=== PATIENT | male | born 1965 | race Caucasian/White ===

== ENCOUNTER 2021-10-30 13:38 | Inpatient (IN) | payer SELFPAY ==
[2021-10-30 14:04] VITALS: BP 134/92; PULSE 90; RESP 18; TEMP 36.4; O2SAT 98
[2021-10-30 14:08] VITALS: BMI 21.1
--- NOTE | 2021-10-30 14:11 | PC.NURSE ---
ADMISSION 56 y/o male, direct admit from [facility]. Admitted for increased SI with plan to slit his throat, some HI as well that worsened last night. States no one thing that has increased this but a ?snowball? of things. Currently living and caring for both elderly parents and states that this is a big stressor. Has not been on medications for 1 year. States has off and on issues with ETOH, longest time sober 1 year. +BZO, THC, ETOH 186. States that a friend gave him Xanax last week for the anxiety but it had the opposite effect and did not help. Calm, cooperative, quiet. A&OX4. Denies AVH.
[2021-10-30 21:15] VITALS: BP 160/97; PULSE 90; RESP 18; TEMP 36.4; O2SAT 97
[2021-10-30] MEDS: trazodone 50 mg Tablet PO (22:17)
[2021-10-30] MEDS: hyDROXYzine 25 mg Capsule 50 MG PO (22:17)
[2021-10-31 05:36] VITALS: BP 118/73; PULSE 93; RESP 17; TEMP 36.6; O2SAT 95
--- NOTE | 2021-10-31 06:19 | PC.NURSE ---
Trazodone 50 mg PO given for sleep and Vistaril 50 mg for anxiety with good results.
[2021-10-31] MEDS: multivitamin therapeutic Tablet 1 TAB PO (09:03)
[2021-10-31] MEDS: hyDROXYzine 25 mg Capsule 50 MG PO ×2 (09:03→21:37)
[2021-10-31] MEDS: folic acid 1 mg Tablet PO (09:03)
[2021-10-31] MEDS: thiamine 100 mg Tablet PO (09:03)
[2021-10-31] MEDS: OLANZapine 5 mg ODT PO (09:03)
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
--- NOTE | 2021-10-31 13:10 | PC.NURSE ---
PRN Meds Patient initially displaying withdraw signs this morning of sweating and anxiety. Received PRN Ativan per protocol to good effect. No further s/sx at this time.
[2021-10-31 13:53] VITALS: BP 134/91; PULSE 96; RESP 16; TEMP 36.6; O2SAT 97
[2021-10-31] MEDS: escitalopram 10 mg Tablet PO (18:54)
[2021-10-31 21:07] VITALS: BP 148/99; PULSE 94; RESP 16; TEMP 36.6; O2SAT 95
[2021-10-31] MEDS: trazodone 50 mg Tablet PO (21:37)
[2021-10-31] MEDS: LORazepam 2 mg Tablet PO (21:54)
[2021-11-01 06:00] VITALS: BP 132/89; PULSE 84; RESP 16; TEMP 36.8; O2SAT 96
[2021-11-01] MEDS: multivitamin therapeutic Tablet 1 TAB PO (09:59)
[2021-11-01] MEDS: thiamine 100 mg Tablet PO (09:59)
[2021-11-01] MEDS: folic acid 1 mg Tablet PO (09:59)
[2021-11-01] MEDS: escitalopram 10 mg Tablet PO (09:59)
[2021-11-01] MEDS: LORazepam 2 mg Tablet PO (13:20)
[2021-11-01 14:00] VITALS: BP 140/96; PULSE 81; RESP 18; TEMP 37.1; O2SAT 95
--- NOTE | 2021-11-01 18:16 | P.NPUPN_ITS ---
Subjective NPU Subjective: Interval history: Patient presents today reporting that he is feeling a little better each day. He reports that this was a much-needed break to get his mental health in order. He denied any significant withdrawal symptoms at this time. He reports he feels confident that with the medication he can start addressing issues and taking care of himself so he can continue to take care of his parents. We discussed the likely discharge by Wednesday. Mental Status Exam MSE Comments: This is a slender, white male, in hospital scrubs, with adequate grooming and eye contact. No abnormal movements, except for resolving mild psychomotor retardation. Cooperative with exam in no acute distress. Speech was normal rate and volume. Mood described as getting better; affect congruent. Thought process, organized. Thought content: patient denied any suicidal or homicidal ideation, there were no delusions reported or noted, patient denied any auditory or visual hallucinations. Attention, concentration, and memory appear intact but none were formally tested. He is alert and oriented times three. Insight and judgment are fair. Impulse control is is limited. Vitals/I&O/Wt Last Vital Signs Temp 97.9 F 11/01/21 21:24 Pulse 80 11/01/21 21:24 Resp 16 11/01/21 21:24 BP 143/83 11/01/21 21:24 Pulse Ox 99 11/01/21 21:24 A&P Assessment and plan (1) Anxiety: Status: Acute (2) Methamphetamine abuse in remission: Status: Acute (3) Cannabis abuse: Status: Acute (4) Alcohol use disorder: Status: Acute (5) Major depressive disorder, recurrent: Status: Acute Plan This is a 56-year-old, white male, with a long history of depression, anxiety, post-traumatic stress disorder, and alcohol and cannabis use, with a distant history of methamphetamine addiction, who presents with active alcohol and cannabis addiction, and significant psychosocial stressors with his parents, open to a trial of medication. 1. Continue current medication. Lexapro 10 mg po qam was initiated. 2. Encourage individual, group, and milieu therapy. 3. Continue q-15 minute checks for safety. 4. Recommend sober living treatment at the highest level of care to which the patient is willing to commit. 5. Monitor with [facility] protocol. Involuntary Hold Information 96 Hour Hold: 96 Hour Involuntary Admission: No Attestations NPU Medical Necessity Statement*: Inpatient hospitalization is medically necessary and the clinically appropriate intervention, at this time. We will monitor medications and make changes as indicated. Likely length of stay is 2-4 days. Coding Level of Care Code Acute Composition Tile Layer for Averyg Fwd Diagnoses Anxiety F41.9 Methamphetamine abuse in remission F15.11 Cannabis abuse F12.10 Alcohol use disorder Major depressive disorder, recurrent F33.9
[2021-11-01] MEDS: hyDROXYzine 25 mg Capsule 50 MG PO (20:29)
[2021-11-01] MEDS: trazodone 50 mg Tablet PO (20:48)
[2021-11-01 21:24] VITALS: BP 143/83; PULSE 80; RESP 16; TEMP 36.6; O2SAT 99
--- NOTE | 2021-11-01 22:32 | PC.NURSE ---
Patient requested Trazadone 50 mg po for sleep. When going to take this the patient had moderate tremors in bilateral hands. Vistaril 50 mg po given. Patient is now asleep.
[2021-11-02 05:59] VITALS: BP 137/73; PULSE 80; RESP 16; O2SAT 98
[2021-11-02 06:00] VITALS: BMI 21.1
[2021-11-02] MEDS: folic acid 1 mg Tablet PO (08:57)
[2021-11-02] MEDS: multivitamin therapeutic Tablet 1 TAB PO (08:57)
[2021-11-02] MEDS: escitalopram 10 mg Tablet PO (08:57)
[2021-11-02] MEDS: thiamine 100 mg Tablet PO (08:57)
[2021-11-02] MEDS: LORazepam 2 mg Tablet PO (10:16)
[2021-11-02 14:00] VITALS: BP 125/71; PULSE 88; RESP 16; TEMP 36.6; O2SAT 94
--- NOTE | 2021-11-02 14:59 | W.PM.NPUPNS ---
Subjective NPU Subjective: Interval history: Patient presents today reporting that he is feeling better and very glad he came to the hospital. He feels optimistic that he will be able to manage his recovery once discharged and really feels the Lexapro has been a significant addition reporting that he feels less anxious and less depressed. He reports that he knows that his parents cannot take care of himself and so he will be returning to that environment but we did discuss the importance of him managing self-care and sharpening the saw. He reports his heart sometimes with their needs to find time for himself but he will work on that. We discussed discharge tomorrow with appropriate referrals. Mental Status Exam MSE Comments: This is a slender, white male, in hospital scrubs, with adequate grooming and eye contact. No abnormal movements, except for resolving mild psychomotor retardation. Cooperative with exam in no acute distress. Speech was normal rate and volume. Mood described as better; affect congruent. Thought process, organized. Thought content: patient denied any suicidal or homicidal ideation, there were no delusions reported or noted, patient denied any auditory or visual hallucinations. Attention, concentration, and memory appear intact but none were formally tested. He is alert and oriented times three. Insight and judgment are fair. Impulse control is is improving. Vitals/I&O/Wt Last Vital Signs Temp 97.9 F 11/02/21 14:00 Pulse 88 11/02/21 14:00 Resp 16 11/02/21 14:00 BP 125/71 11/02/21 14:00 Pulse Ox 94 11/02/21 14:00 Weight last 48 hrs Weight 72.575 kg A&P Assessment and plan (1) Anxiety: Status: Acute (2) Methamphetamine abuse in remission: Status: Acute (3) Cannabis abuse: Status: Acute (4) Alcohol use disorder: Status: Acute (5) Major depressive disorder, recurrent: Status: Acute Plan This is a 56-year-old, white male, with a long history of depression, anxiety, post-traumatic stress disorder, and alcohol and cannabis use, with a distant history of methamphetamine addiction, who presents with active alcohol and cannabis addiction, and significant psychosocial stressors with his parents, open to a trial of medication. 1. Continue current medications. 2. Encourage individual, group, and milieu therapy. 3. Continue q-15 minute checks for safety. 4. Recommend sober living treatment at the highest level of care to which the patient is willing to commit. 5. Likely discharge in the morning. Involuntary Hold Information 96 Hour Hold: 96 Hour Involuntary Admission: No Attestations NPU Medical Necessity Statement*: Inpatient hospitalization is medically necessary and the clinically appropriate intervention, at this time. We will monitor medications and make changes as indicated.? Likely length of stay is 1-3 days. Coding Level of Care Code Acute General Studies Program Chair for Jimmie Fwd Diagnoses Anxiety F41.9 Methamphetamine abuse in remission F15.11 Cannabis abuse F12.10 Alcohol use disorder Major depressive disorder, recurrent F33.9
[2021-11-02] MEDS: trazodone 50 mg Tablet PO (21:04)
[2021-11-02 21:26] VITALS: BP 141/97; PULSE 99; RESP 18; TEMP 36.6; O2SAT 98
[2021-11-03 05:38] VITALS: BP 163/99; PULSE 66; RESP 17; TEMP 36.9; O2SAT 98
[2021-11-03] MEDS: hyDROXYzine 25 mg Capsule 50 MG PO ×2 (07:04→21:31)
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
[2021-11-03] MEDS: escitalopram 10 mg Tablet PO (09:14)
[2021-11-03] MEDS: thiamine 100 mg Tablet PO (09:14)
[2021-11-03] MEDS: folic acid 1 mg Tablet PO (09:14)
[2021-11-03] MEDS: multivitamin therapeutic Tablet 1 TAB PO (09:14)
[2021-11-03] MEDS: OLANZapine 5 mg ODT PO (11:03)
--- NOTE | 2021-11-03 12:19 | SUR.HOLD ---
[facility] Unit Group Topic:Yamilet Panchal Group Activity General Mood of Group: Ramón did not attend group today.
--- NOTE | 2021-11-03 13:54 | PC.NURSE ---
PRN At 1100 patient came to nurses stating that he did not think his medications were effective. Reports sweating, agitation, thoughts of SI. At that time patient was given PRN Zydis to some effect. Has been up more in [place] since that time. Making phone calls working towards a discharge plan.
[2021-11-03 14:00] VITALS: BP 154/87; PULSE 79; RESP 18; TEMP 36.7; O2SAT 97
--- NOTE | 2021-11-03 17:56 | P.NPUPN_ITS ---
Subjective NPU Subjective: Interval history: Patient presents today having had significant issues this morning. Endorsing being unsafe for discharge and even suggesting that the medication was ineffective. After some calls and some additional conversation it was clearly is feeling better and there is no significant change in the discharge plan but he is now reporting feeling safe for discharge again. We had a long conversation about the circumstances and he was able to contract for safety outside the hospital. We agreed to change discharge till tomorrow morning. Mental Status Exam MSE Comments: This is a slender, white male, in hospital scrubs, with adequate grooming and eye contact. No abnormal movements, except for resolving mild psychomotor retardation. Cooperative with exam in no acute distress. Speech was normal rate and volume. Mood described as better; affect congruent. Thought process, organized. Thought content: patient denied any suicidal or homicidal ideation, there were no delusions reported or noted, patient denied any auditory or visual hallucinations. Attention, concentration, and memory appear intact but none were formally tested. He is alert and oriented times three. Insight and judgment are fair. Impulse control is is improving. Vitals/I&O/Wt Last Vital Signs Temp 97.6 F 11/03/21 21:59 Pulse 89 11/03/21 21:59 Resp 18 11/03/21 21:59 BP 164/105 11/03/21 21:59 Pulse Ox 95 11/03/21 21:59 Weight last 48 hrs Weight 72.575 kg A&P Assessment and plan (1) Malingering: Status: Acute (2) Major depressive disorder, recurrent: Status: Acute (3) Alcohol use disorder: Status: Acute (4) Cannabis abuse: Status: Acute (5) Methamphetamine abuse in remission: Status: Acute (6) Anxiety: Status: Acute Plan This is a 56-year-old, white male, with a long history of depression, anxiety, post-traumatic stress disorder, and alcohol and cannabis use, with a distant history of methamphetamine addiction, who presents with active alcohol and cannabis addiction, and significant psychosocial stressors with his parents, open to a trial of medication. 1. Continue current medications. 2. Encourage individual, group, and milieu therapy. 3. Continue q-15 minute checks for safety. 4. Recommend sober living treatment at the highest level of care to which the patient is willing to commit. 5. Discharge in the morning. Best that can be determined is that parents changed their mind about allowing him to come back home and instead of discussed that it was represented as a change in his mental status. Involuntary Hold Information 96 Hour Hold: 96 Hour Involuntary Admission: No Attestations NPU Medical Necessity Statement*: Inpatient hospitalization is medically necessary and the clinically appropriate intervention, at this time. We will monitor medications and make changes as indicated.? Likely length of stay is 1-2 days. 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
[2021-11-03 21:59] VITALS: BP 164/105; PULSE 89; RESP 18; TEMP 36.4; O2SAT 95
[2021-11-03] MEDS: trazodone 50 mg Tablet PO (22:45)
[2021-11-04 06:00] VITALS: BP 131/81; PULSE 81; RESP 17; TEMP 36.7; O2SAT 95
[2021-11-04] MEDS: multivitamin therapeutic Tablet 1 TAB PO (08:52)
[2021-11-04] MEDS: folic acid 1 mg Tablet PO (08:53)
[2021-11-04] MEDS: escitalopram 10 mg Tablet PO (08:53)
[2021-11-04] MEDS: thiamine 100 mg Tablet PO (08:53)
[2021-11-04 09:05] VITALS: BP 131/81; PULSE 81; RESP 17; TEMP 36.7; O2SAT 95
== END 2021-11-04 10:49 | disposition home or self-care (01) | DRG 885 ==
PROVIDERS: Admitting Provider Psychiatry & Neurology Psychiatry; Visit Provider Psychiatry & Neurology Psychiatry
DX: F33.9 Major depressive disorder, recurrent, unspecified (principal); R45.851 Suicidal ideations; Z76.5 Malingerer [conscious simulation]; F12.10 Cannabis abuse, uncomplicated; F15.11 Other stimulant abuse, in remission; F41.9 Anxiety disorder, unspecified; F10.10 Alcohol abuse, uncomplicated; F43.10 Post-traumatic stress disorder, unspecified; Z63.8 Other specified problems related to primary support group; Z62.820 Parent-biological child conflict
CPT/HCPCS: 96372; 97150; 97165; J3411